=== PATIENT | male | born 1980 | race Caucasian/White ===

== ENCOUNTER 2017-12-11 11:53 | Emergency (ER) | END 2017-12-11 13:38 | disposition home or self-care (01) ==

== ENCOUNTER 2018-09-29 15:40 | Emergency (ER) | payer OTHER ==
[~2018-09-29] VITALS: Ht 172.7 cm; Wt 60.7 kg
[~2018-09-29 15:40] MED LIST: ACET1TAB40 PO; BACTDS PO; CEPH-443 PO; HYDR-3498 PO; IBUP-1542 PO; IBUP-1561 PO
[2018-09-29 16:27] VITALS: Ht 172.7 cm; Wt 60.7 kg
[2018-09-29] MEDS ORDERED: KETOROLAC 30 MG INJ IM STA (21:14)
[2018-09-29] MEDS ORDERED: ACET-141 PO (22:29)
[2018-09-29] MEDS ORDERED: IBUP-1542 PO (22:29)
--- NOTE | 2018-09-29 22:31 | ERD ---
ER Documentation Chief Complaint Chief Complaint left foot pain HPI 38-year-old male presents for left foot pain x4 months. Patient states that he was walking and stepped wrong and injured his foot 4 months ago. He states that he thought the pain would resolve on its own however it has persisted. He states that he has 10 out of 10 pain intermittently. The pain is noted in the anterior left foot. No sniffing past medical history. No other modifying factors noted. No treatments tried at home. Sign language interpretation was used given the patient is deaf ROS All systems reviewed and are negative except as per history of present illness. Medications Home Meds Active Scripts Ibuprofen* (Motrin*) 600 Mg Tab, 600 MG PO Q6H PRN for PAIN AND OR ELEVATED TEMP, #30 TAB Prov:ALYSSA GUADARRAMA DO 09/29/18 Acetaminophen* (Acetaminophen*) 500 MG Extra Strength Tablet, 500 MG PO Q4H PRN for PAIN AND OR ELEVATED TEMP, #30 TAB Prov:ALYSSA GUADARRAMA DO 09/29/18 Ibuprofen* (Motrin*) 600 Mg Tab, 600 MG PO Q6, #30 TAB Prov:LUIS M GOODWIN 12/11/17 Cephalexin* (Keflex*) 500 Mg Capsule, 500 MG PO BID for 7 Days, CAP Prov:LUIS M GOODWIN 12/11/17 Ibuprofen* (Motrin*) 400 Mg Tab, 400 MG PO Q6H PRN for PAIN AND OR ELEVATED TEMP, #30 TAB Prov:FROILAN MARTINES NP 05/14/16 Ibuprofen* (Motrin*) 600 Mg Tab, 600 MG PO Q6, #30 TAB Prov:LUIS M GOODWIN 06/30/15 Ibuprofen* (Motrin*) 600 Mg Tab, 600 MG PO Q6, #7 TAB Prov:LUIS M GOODWIN 05/16/15 Hydrocodone Bit-Acetaminophen* ([place]*) 5-325 Mg Tab, 1 TAB PO Q6 PRN for PAIN, #7 TAB Prov:ESTHER VARGAS NP 05/07/15 Ibuprofen* (Motrin*) 600 Mg Tab, 600 MG PO Q6, #20 TAB Prov:ESTHER VARGAS I. METALSMITH HELPER 05/07/15 Ibuprofen* (Ibuprofen*) 600 Mg Tablet, 600 MG PO Q6, #30 TAB Prov:FROILAN MARTINES NP 01/20/15 Sulfamethoxazole-Trimethoprim* (Bactrim* DS) 800-160 Mg Tab, 1 TAB PO BID for 10 Days, TAB Prov:FROILAN MARTINES NP 01/20/15 Acetaminophen-Codeine* (Acetaminophen-Cod #3*) 300-30 Mg Tab, 1 TAB PO Q4H PRN for PAIN LEVEL 6-10, #15 TAB Prov:CHO,KEL 11/25/14 Ibuprofen* (Motrin*) 600 Mg Tab, 600 MG PO Q6 for PAIN LEVEL 1-5, #15 TAB Prov:CHO,KEL 11/25/14 Allergies Allergies: Coded Allergies: No Known Allergy (Unverified , 06/30/15) PMhx/Soc History of Surgery: No Anesthesia Reaction: No Hx Neurological Disorder: No Hx Respiratory Disorders: No Hx Cardiac Disorders: No Hx Psychiatric Problems: No Hx Miscellaneous Medical Probl: No Hx Alcohol Use: No Hx Substance Use: No Hx Tobacco Use: Yes Smoking Status: Current every day smoker FmHx Family History: No coronary disease Physical Exam Vitals Vital Signs Date Temp Pulse Resp B/P (MAP) Pulse Ox O2 O2 Flow FiO2 Time Delivery Rate 09/29/18 98.0 77 19 130/78 100 Room Air 22:34 (95) 09/29/18 98.0 73 18 129/69 98 16:27 (89) Physical Exam Const: No acute distress Resp: Clear to auscultation bilaterally Cardio: Regular rate and rhythm, no murmurs Skin: No petechiae or rashes Back: No midline or flank tenderness Neur: Awake and alert Psych: Normal Mood and Affect Lower Extremity -left: Skin: No laceration Compartments: Soft Motor: Full active range of motion hip/knee/ankle/foot Sensation: Intact to light touch FDWS/MF/LF/P surfaces. Bones: Nontender pelvis/knee/proximal tibia/mild tenderness patient over the anterior part of the left foot Joints: No effusion or laxity Pulses/Perfusion: 2+ DP, Capillary refill < 2 seconds Results 24 hrs Current Medications Medications Dose Sig/Bridgette Start Time Status Last (Trade) Ordered Route PRN Stop Time Admin Dose Reason Admin Ketorolac 30 mg ONCE STAT 09/29/18 DC 09/29/18 Tromethamine IM 21:14 21:26 (Toradol) 09/29/18 21:16 Procedures/MDM Medical Decision Making: Differential diagnosis includes but not limited to fracture, dislocation, muscle strain, ligamentous sprain. Patient appeared well on physical exam. There was tenderness over the left foot Patient was neurovascularly intact ED course: Patient was given Toradol. Symptoms improved with treatment. Imaging: X-ray left foot 3V Interpreted by me: Bones: No fracture Joints: No dislocation Foreign body: None Prescription(s): Patient given prescription for supportive medication(s). Patient advised to follow up with PCP in 1-2 days. Patient advised to return to ED for new or worsening symptoms. Patient stable on discharge from the ED. Disclaimer: Inadvertent spelling and grammatical errors are likely due to EHR/dictation software use and do not reflect on the overall quality of patient care. Also, please note that the electronic time recorded on this note does not necessarily reflect the actual time of the patient encounter. Departure Diagnosis: Primary Impression: Injury of foot Encounter type: initial encounter Laterality: left Qualified Codes: S99.922A - Unspecified injury of left foot, initial encounter Condition: Fair Patient Instructions: Sprain Foot Referrals: [facility] (PCP) Additional Instructions: Call your primary care doctor TOMORROW for an appointment during the next 1-2 days.See the doctor sooner or return here if your condition worsens before your appointment time. ALYSSA GUADARRAMA DO September 29, 2018 22:31
[2018-09-29 22:34] VITALS: BP 130/78; PULSE 77; RESP 19
== END 2018-09-29 22:35 | disposition home or self-care (01) ==
LOC: FTE 15:40
DX: S99.922A Unspecified injury of left foot, initial encounter (principal); F17.210 Nicotine dependence, cigarettes, uncomplicated; X58.XXXA Exposure to other specified factors, initial encounter; Y92.9 Unspecified place or not applicable
CPT/HCPCS: 73630; 96372; J1885; Z7502

== ENCOUNTER 2018-10-14 21:09 | Emergency (ER) | payer OTHER ==
[~2018-10-14] VITALS: Ht 165.1 cm; Wt 61.2 kg
[~2018-10-14 21:09] MED LIST changes: +ACET-141 PO
[2018-10-14 21:10] VITALS: BP 120/58; PULSE 78; RESP 18; Ht 165.1 cm; Wt 61.2 kg
[2018-10-14] MEDS ORDERED: RANI150T35 PO (22:59)
[2018-10-14] MEDS ORDERED: IBUP-1542 PO (22:59)
--- NOTE | 2018-10-15 00:06 | ERD ---
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 Patient had x-rays here approximately 2 weeks ago which were negative. He denies any new trauma. Patient reports constant pain which is worse with walking and rated 10/10 in severity. He took ibuprofen at home with relief and he is requesting refill of ibuprofen. ROS All systems reviewed and are negative except as per history of present illness. Medications Home Meds Active Scripts Ranitidine Hcl* (Zantac*) 150 Mg Tablet, 150 MG PO BID PRN for EPIGASTRIC PAIN, #30 TAB Prov:EDDIE LAMBERT PA-C 10/14/18 Ibuprofen* (Motrin*) 600 Mg Tab, 600 MG PO Q6, #30 TAB Prov:EDDIE LAMBERT PA-C 10/14/18 Ibuprofen* (Motrin*) 600 Mg Tab, 600 MG PO Q6H PRN for PAIN AND OR ELEVATED TEMP, #30 TAB Prov:ALYSSA GUADARRAMA DO 09/29/18 Acetaminophen* (Acetaminophen*) 500 MG Extra Strength Tablet, 500 MG PO Q4H PRN for PAIN AND OR ELEVATED TEMP, #30 TAB Prov:ALYSSA GUADARRAMA DO 09/29/18 Ibuprofen* (Motrin*) 600 Mg Tab, 600 MG PO Q6, #30 TAB Prov:LUIS M GOODWIN 12/11/17 Cephalexin* (Keflex*) 500 Mg Capsule, 500 MG PO BID for 7 Days, CAP Prov:LUIS M GOODWIN 12/11/17 Ibuprofen* (Motrin*) 400 Mg Tab, 400 MG PO Q6H PRN for PAIN AND OR ELEVATED TEMP, #30 TAB Prov:FROILAN MARTINES NP 05/14/16 Ibuprofen* (Motrin*) 600 Mg Tab, 600 MG PO Q6, #30 TAB Prov:LUIS M GOODWIN 06/30/15 Ibuprofen* (Motrin*) 600 Mg Tab, 600 MG PO Q6, #7 TAB Prov:LUIS M GOODWIN 05/16/15 Hydrocodone Bit-Acetaminophen* ([place]*) 5-325 Mg Tab, 1 TAB PO Q6 PRN for PAIN, #7 TAB Prov:ESTHER VARGAS I. SLIP MAKER 05/07/15 Ibuprofen* (Motrin*) 600 Mg Tab, 600 MG PO Q6, #20 TAB Prov:VARGASESTHER QUIROGA I. SLIP MAKER 05/07/15 Ibuprofen* (Ibuprofen*) 600 Mg Tablet, 600 MG PO Q6, #30 TAB Prov:FROILAN MARTINESJudith SLIP MAKER 01/20/15 Sulfamethoxazole-Trimethoprim* (Bactrim* DS) 800-160 Mg Tab, 1 TAB PO BID for 10 Days, TAB Prov:FROILAN MARTINES. SLIP MAKER 01/20/15 Acetaminophen-Codeine* (Acetaminophen-Cod #3*) 300-30 Mg Tab, 1 TAB PO Q4H PRN for PAIN LEVEL 6-10, #15 TAB Prov:CHORYANA 11/25/14 Ibuprofen* (Motrin*) 600 Mg Tab, 600 MG PO Q6 for PAIN LEVEL 1-5, #15 TAB Prov:CHOKEL 11/25/14 Allergies Allergies: Coded Allergies: No Known Allergy (Unverified , 06/30/15) PMhx/Soc Medical and Surgical Hx: pt denies Medical Hx, pt denies Surgical Hx History of Surgery: No Anesthesia Reaction: No Hx Neurological Disorder: No Hx Respiratory Disorders: No Hx Cardiac Disorders: No Hx Psychiatric Problems: No Hx Miscellaneous Medical Probl: No Hx Alcohol Use: No Hx Substance Use: No Hx Tobacco Use: Yes Smoking Status: Current every day smoker FmHx Family History: No diabetes Physical Exam Vitals Vital Signs Date Temp Pulse Resp B/P (MAP) Pulse Ox O2 O2 Flow FiO2 Time Delivery Rate 10/14/18 97.5 78 18 120/58 97 21:10 (78) Physical Exam Const: No acute distress Head: Atraumatic Eyes: Normal Conjunctiva ENT: Normal External Ears, Nose and Mouth. Neck: Full range of motion. No meningismus. Resp: No respiratory distress. Skin: No petechiae or rashes Back: No midline or flank tenderness Ext: No cyanosis, or edema. Tenderness palpation of the right fourth metatarsal on the dorsal aspect. No obvious deformity. 2+ DP pulses. Neur: Awake and alert Psych: Normal Mood and Affect Procedures/MDM 38 old male presented to the emergency department complaining of left foot pain for the past 4 weeks. X-rays 2 weeks ago were negative for any fracture. Patient is requesting refill of ibuprofen he will be given for this and ranitidine to prevent gastritis. Patient's extremity symptoms have stabilized while they have been evaluated in the department and are appropriate for outpatient follow up. No evidence of compartment syndrome, neurologic injury, vascular injury, open joint, open fracture, tendon laceration, or foreign body. No evidence of life-threatening pathology at time of discharge. Pt/family in agreement with discharge plan/diagnosis. Pt/family advised to return immediately with any new or worsening symptoms. Follow-up with primary care physician within the next 1-2 days. Departure Diagnosis: Primary Impression: Left foot pain Condition: Fair Patient Instructions: Contusion, Foot Additional Instructions: Call your primary care doctor TOMORROW for an appointment during the next 1-2 days.See the doctor sooner or return here if your condition worsens before your appointment time. EDDIE LAMBERT PA-C October 15, 2018 00:05
== END 2018-10-14 23:14 | disposition home or self-care (01) ==
LOC: FTE 21:09
DX: M79.672 Pain in left foot (principal); F17.210 Nicotine dependence, cigarettes, uncomplicated
CPT/HCPCS: 99282

== ENCOUNTER 2019-01-13 11:46 | Emergency (ER) | payer OTHER ==
[~2019-01-13] VITALS: Ht 167.6 cm; Wt 64.6 kg
[~2019-01-13 11:46] MED LIST changes: +RANI150T35 PO
[2019-01-13 12:21] VITALS: BP 106/55; PULSE 78; RESP 18; Ht 167.6 cm; Wt 64.6 kg
== END 2019-01-13 15:23 | disposition home or self-care (01) ==
LOC: E/R 11:46
DX: R00.2 Palpitations (principal); R91.1 Solitary pulmonary nodule; Z87.891 Personal history of nicotine dependence
CPT/HCPCS: 71045; 93005; Z7502